=== PATIENT | female | born 1950 | race Caucasian/White ===

== ENCOUNTER 2023-12-05 12:21 | Outpatient (CLI) | payer MEDICARE, BC ==
[~2023-12-05] VITALS: Ht 182.9 cm; Wt 83.9 kg
[2023-12-05] MEDS ORDERED: PERFLUTREN PROTEIN-A MICROSPHR (Optison) 0.22 MG/ML 3ML VIAL IV ONE (13:05)
== END 2023-12-05 23:59 | disposition home or self-care (01) ==
LOC: CARD DIAG 12:21
PROVIDERS: ATTEND Internal Medicine Interventional Cardiology
DX: I34.0 Nonrheumatic mitral (valve) insufficiency (principal); R94.31 Abnormal electrocardiogram [ECG] [EKG]
CPT/HCPCS: 93308; Q9956

== ENCOUNTER 2024-01-24 10:23 | Day surgery (SDC) | payer MEDICARE, BC ==
[~2024-01-24] VITALS: Ht 182.9 cm; Wt 85.3 kg
[2024-01-24] VITALS (9 sets, daily range): BP systolic 146–172; BP diastolic 77–119; PULSE 66–86; RESP 16; TEMP 98.1; O2SAT 96–98
[2024-01-24] MEDS ORDERED: morphine 10mg/ml inj. IV ONE (10:50)
[2024-01-24] MEDS ORDERED: ROSU40TA71 PO (11:29)
[2024-01-24] MEDS ORDERED: LEVO175T7 PO (11:29)
[2024-01-24] MEDS ORDERED: AMI200T PO (11:29)
[2024-01-24] MEDS ORDERED: APIX5TAB3 PO (11:29)
[2024-01-24] MEDS ORDERED: LORA10TA7 PO (11:29)
[2024-01-24] MEDS ORDERED: METO-384 PO (11:29)
[2024-01-24] MEDS ORDERED: PARO40TA4 PO (11:29)
[2024-01-24] MEDS ORDERED: FLUT16SP2 BOTHNARES (11:29)
[2024-01-24 11:48] LABS: BASOPHILS % (AUTO) 0.7 % (0-1); EOSINOPHILS % (AUTO) 0.7 % (0-6); HEMATOCRIT 47.6 % (35.0-45.0); HEMOGLOBIN 16.2 g/dl (12.0-16.0); LYMPHOCYTES # (AUTO) 1.3 X10'3 (1.1-4.8); LYMPHOCYTES % (AUTO) 24.7 % (21-51); MEAN CORPUSCULAR HEMOGLOBIN 35.9 PG (27.0-31.0); MEAN CORPUSCULAR VOLUME 105.4 FL (78-98); MONOCYTES # (AUTO) 0.5 X10'3 (0-0.9); MONOCYTES % (AUTO) 8.7 % (2-12); NEUTROPHILS # (AUTO) 3.4 X10'3 (1.8-7.7); NEUTROPHILS % (AUTO) 65.2 % (42-75); PLATELET COUNT 176 X10'3 (140-440); RED BLOOD COUNT 4.51 X10'6 (4.20-5.60); RED CELL DISTRIBUTION WIDTH 15.4 % (11.5-14.5); WHITE BLOOD COUNT 5.2 X10'3 (4.5-11.0)
[2024-01-24 12:03] LABS: ALBUMIN 3.4 G/DL (3.4-5.0); ANION GAP 11 (8-16); BLOOD UREA NITROGEN 25 MG/DL (7-18); CALCIUM 9.2 MG/DL (8.5-10.1); CHLORIDE 105 MMOL/L (99-107); CHOL/HDL RATIO 2.8 (0.00-4.99); CHOLESTEROL 145 MG/DL (0-200); CREATININE 1.04 MG/DL (0.40-0.90); GLUCOSE 100 MG/DL (70-104); HDL CHOLESTEROL 52 MG/DL (35-60); LDL CHOLESTEROL 69 MG/DL (50-100); SODIUM 140 MMOL/L (135-145); TOTAL CARBON DIOXIDE 24.4 MMOL/L (24-32); TRIGLYCERIDES 122 MG/DL (20-135); eCRCL 57 ML/MIN; eGFR 52 ML/MIN
[2024-01-24 12:10] LABS: PROTHROMBIN TIME 10.9 SECONDS (9.0-12.0)
[2024-01-24] MEDS: MIDAZolam 1mg/ml 10ml vial IV ONE (13:18)
[2024-01-24] MEDS: diphenhydrAMINE 50 mg/ml inj IV ONE (13:18)
[2024-01-24] MEDS: normal saline 1000ml 1,000 ML IV SCH (13:19)
== END 2024-01-24 15:45 | disposition home or self-care (01) ==
LOC: SSTAY O 10:23
PROVIDERS: ATTEND Student in an Organized Health Care Education/Training Program
DX: I48.91 Unspecified atrial fibrillation (principal); I49.1 Atrial premature depolarization; I25.2 Old myocardial infarction; I11.0 Hypertensive heart disease with heart failure; I50.9 Heart failure, unspecified; E78.00 Pure hypercholesterolemia, unspecified; E03.9 Hypothyroidism, unspecified; I73.9 Peripheral vascular disease, unspecified; Z79.01 Long term (current) use of anticoagulants; Z79.890 Hormone replacement therapy; Z79.899 Other long term (current) drug therapy; Z88.2 Allergy status to sulfonamides; Z88.8 Allergy status to other drugs, medicaments and biological substances
CPT/HCPCS: 36415; 80048; 80061; 85025; 85610; 92960; 93005; J1200; J2250; J7030